=== PATIENT | female | born 1950 | race Caucasian/White ===

== ENCOUNTER 2018-07-08 14:05 | Emergency (ER) | payer OTHER ==
[~2018-07-08] VITALS: Ht 162.6 cm; Wt 90.7 kg
[2018-07-08] MEDS ORDERED: oxyCODONE/APAP 5/325MG (PERCOCET 5) TABLET PO ONE (15:00)
--- NOTE | 2018-07-08 15:04 | ED Lower Extremity ---
General Chief Complaint: Lower Extremity Stated Complaint: FALL Nursing Triage Note: PT ARRIVED PER EMS PT CO OF R KNEE PAIN FROM FALL MISSED CURB AND FELL ON R KNEE STATES FELT AND HEARD A POP. PT HAS ABRSASION NOTED ON R KNEE PT STATES THIS IS FROM FALL EARLIER THIS AM MISSED A COUPLE STEPS. DENIES LOC OR HITTING HEAD Nursing Sepsis Screen: No Definite Risk Source: patient Exam Limitations: no limitations History of Present Illness Date Seen by Provider: Jul 08, 2018 Time Seen by Provider: 14:20 Initial Comments 68-year-old female who is brought to the emergency room by [facility] for complaints of right knee pain after a fall. She reports that this morning she was walking down a couple of steps when she lost her footing and fell landing onto the right knee. She reports that she did not think anything of the fall and the knee was a little bit sore but she was able to ambulate without difficulty and only had minimal pain. 2 hours after the fall she was stepping up on a curb when she felt a pop in the right knee causing her pain and her to fall to the ground for as second time. This is when she called EMS for transport. She reports that she was staying at the [facility] when this happened. She denies hitting her head from the fall. She has moderate swelling to the right knee. She is neurovascularly intact in the right lower extremity. Onset: this morning Pain/Injury Location: right knee Method of Injury: fell Modifying Factors: Worse With Movement Allergies and Home Medications Allergies Coded Allergies: codeine (Verified Allergy, Unknown, 07/08/18) Home Medications Oxycodone HCl/Acetaminophen 1 Each Tablet, 1 TAB PO Q4H Prescribed by: DIMAS PARRA on 07/08/18 1620 Past Rtanzeo-Yfhllj-Kheccz Hx Patient Social History Alcohol Use: Denies Use Recreational Drug Use: No Smoking Status: Never a Smoker Recent Foreign Travel: No Contact w/Someone Who Travel: No Recent Infectious Disease Expo: No Recent Hopitalizations: No Seasonal Allergies Seasonal Allergies: No Past Medical History Surgeries: Yes (GASTRIC BYPASS) Section Respiratory: No Cardiac: No Neurological: No Genitourinary: No Gastrointestinal: No Musculoskeletal: No Endocrine: No HEENT: No Cancer: No Psychosocial: No Integumentary: No Physical Exam Vital Signs Vital Signs - First Documented 07/08/18 14:05 Temp 97.9 Pulse 89 Resp 18 B/P (MAP) 172/100 (124) Pulse Ox 96 Capillary Refill : Less Than 3 Seconds Height, Weight, BMI Height: 5'4.00" Weight: 200lbs. oz. 90.219595md; BMI Method:Stated Progress/Results/Core Measures Results/Orders My Orders Orders - DIMAS PARRA Knee, Right, 3 Views (07/08/18 14:27) Oxycodone/Apap 5/325mg Tablet (Percocet (07/08/18 15:00) Medications Given in ED Current Medications Medications Dose Ordered Sig/Barb Route Start Time Stop Time Status Last Admin Dose Admin Oxycodone/ Acetaminophen 1 tab ONCE ONCE PO 07/08/18 15:00 07/08/18 15:01 DC 07/08/18 15:21 1 TAB Vital Signs/I&O 07/08/18 14:05 Temp 97.9 Pulse 89 Resp 18 B/P (MAP) 172/100 (124) Pulse Ox 96 Blood Pressure Mean: 124 Progress Progress Note : Time: 16:25 Progress Note I have seen and evaluated the patient. Her pain has improved mildly with the Percocet. She was placed in a knee immobilizer and was given crutches. Strict follow-up was instructed. Her x-ray images were burnt onto a disc to take for follow-up back to [facility] where she lives. Her and daughter are coming down to pick her up to take her back home. She was instructed not to bear weight onto the knee. She agrees with plan of care, plans for discharge, return precautions were given. The case was discussed with Dr. Christopher and he agrees with plan of care. Diagnostic Imaging Diagonstic Imaging: Xray Plain Films/CT/US/NM/MRI: knee Comments NAME: [facility] REC#: [id number] PT STATUS: REG ER : 1950 PHYSICIAN: DIMAS PARRA ADMIT DATE: 07/08/18/ER Signed Date of Exam:07/08/18 KNEE, RIGHT, 3 VIEWS INDICATION: Right knee pain after fall. COMPARISON: None. DISCUSSION: Three views of the right knee were obtained. Acute avulsion fracture arising from the anterior tibial plateau, likely insertion of the patellar tendon. No other fracture or dislocation is identified. Anterior soft tissue swelling is present. Overall alignment is anatomic. IMPRESSION: 1. Acute avulsion fracture from the anterior tibial plateau, likely the insertion of the patellar tendon. Marked anterior soft tissue swelling. Dictated by: Dictated on workstation # [id number] Dict: 07/08/18 1458 Trans: 07/08/18 1558 [id number] Interpreted by: SISI ROLON MD Electronically signed by: SISI ROLON MD 07/08/18 1558 Departure Impression Primary Impression: avulsion fracture of the anterior tibial plateau Disposition: HOME, SELF-CARE Condition: Stable/Unchanged Departure-Patient Inst. Decision time for Depature: 16:17 Referrals: UNKNOWN (PCP/Family) Primary Care Physician Patient Instructions: Ligament Injuries in the Knee (DC), Tibial Plateau Fracture (DC) Add. Discharge Instructions: It is very important for you to call first thing tomorrow morning to schedule an appointment with an orthopedic surgeon to further evaluate your fracture. You need to follow up with someone in the next 2 days. Take your x-ray images with you to your appointment. Take your medication as directed. Ice to the sore areas at 20 minute intervals. Wear the knee immobilizer at all times until you follow up with the orthopedic surgeon. Do not bare weight on the knee and use your crutches or a wheelchair at all times. Follow-up with her primary care as needed. Return back to the emergency room for worsening symptoms or concerns as needed. All discharge instructions reviewed with patient and/or family. Voiced understanding. Scripts Oxycodone HCl/Acetaminophen (Percocet 5-325 mg Tablet) 1 Each Tablet 1 TAB PO Q4H for PAIN-MODERATE MDD 6, #20 TAB Prov: DIMAS PARRA 07/08/18 DIMAS PARRA Jul 08, 2018 15:03
--- NOTE | 2018-07-08 16:00 | Diagnostic Imaging Report ---
INDICATION: Right knee pain after fall. COMPARISON: None. DISCUSSION: Three views of the right knee were obtained. Acute avulsion fracture arising from the anterior tibial plateau, likely insertion of the patellar tendon. No other fracture or dislocation is identified. Anterior soft tissue swelling is present. Overall alignment is anatomic. IMPRESSION: 1. Acute avulsion fracture from the anterior tibial plateau, likely the insertion of the patellar tendon. Marked anterior soft tissue swelling. Dictated by: Dictated on workstation # [id number]
[2018-07-08] MEDS ORDERED: OXYC1TAB87 PO (16:20)
[2018-07-08 17:21] VITALS: BP 162/88
== END 2018-07-08 18:07 | disposition home or self-care (01) ==
LOC: ER 14:08
DX: S82.141A Displaced bicondylar fracture of right tibia, initial encounter for closed fracture (principal); Z98.84 Bariatric surgery status; Z88.5 Allergy status to narcotic agent; Z98.890 Other specified postprocedural states; W10.8XXA Fall (on) (from) other stairs and steps, initial encounter
CPT/HCPCS: 73562